=== PATIENT | male | born 1990 | race Hispanic/Latino ===

== ENCOUNTER 2025-04-06 17:59 | Emergency (ER) | payer OTHER ==
[~2025-04-06] VITALS: Ht 177.8 cm; Wt 79.4 kg
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
[2025-04-06 19:38] VITALS: BP 136/49; PULSE 64; RESP 14; TEMP 97.9; O2SAT 100
[2025-04-06] MEDS ORDERED: IBUP-1492 PO (19:39)
[2025-04-06] MEDS ORDERED: CYCL5TAB3 PO (19:39)
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
== END 2025-04-06 20:45 | disposition home or self-care (01) ==
LOC: EDH 17:59
DX: S16.1XXA Strain of muscle, fascia and tendon at neck level, initial encounter (principal); M94.0 Chondrocostal junction syndrome [Tietze]; Z88.0 Allergy status to penicillin; V89.2XXA Person injured in unspecified motor-vehicle accident, traffic, initial encounter; Y93.89 Activity, other specified; Y92.89 Other specified places as the place of occurrence of the external cause; Y99.8 Other external cause status
CPT/HCPCS: 71046; 72040; 99284